=== PATIENT | female | born 1985 ===

== ENCOUNTER 2016-08-19 10:19 | Emergency (ER) | payer MEDICAID ==
[2016-08-19 10:20] VITALS: BMI 29.5
[2016-08-19 10:51] VITALS: O2SAT 98
[2016-08-19 11:05] LABS: RBC URINE 7 /hpf (0-3); URINE BILIRUBIN NEGATIVE (NEGATIVE); URINE BLOOD 2+ (NEGATIVE); URINE COLOR Yellow (YELLOW); URINE GLUCOSE (UA) NORMAL (Normal); URINE KETONE NEGATIVE (NEGATIVE); URINE LEUKOCYTE ESTERASE NEG Leu/uL (Negative); URINE PROTEIN NEGATIVE (NEGATIVE); URINE UROBILINOGEN NORMAL mg/dL (0.2-1.0)
[2016-08-19 11:17] LABS: URINE BACTERIA MANY (<OCC)
[2016-08-19 11:18] LABS: WBC URINE 8 /hpf (0-5)
--- NOTE | 2016-08-19 11:26 | C.PDOC ---
History Of Present Illness 31 y/o female w/o significant PMHx presents to the ED for evaluation of diffuse abdominal pain x2 days associated nausea. Pt admits, pain is intermittent, cramping, worse RUQ. Otherwise, pt denies fever, chills, recent illness or abx use, sore throat, cough, CP, SOB, dyspnea, diaphoresis, palpitation, vomiting, diarrhea, UTI symptoms or any other complaints.Ambulate to Ed for evaluation, not in any apparent distress. Time Seen by Provider: 08/19/16 11:23 Chief Complaint (Nursing): Abdominal Pain History Per: Patient History/Exam Limitations: no limitations Onset/Duration Of Symptoms: Days Current Symptoms Are (Timing): Still Present Severity: Moderate Location Of Pain/Discomfort: Diffuse Radiation Of Pain To:: None Quality Of Discomfort: "Pain" Associated Symptoms: Nausea. denies: Fever, Vomiting, Diarrhea, Chest Pain, Urinary Symptoms Exacerbating Factors: None Alleviating Factors: None Recent travel outside of the [place]: No Past Medical History Reviewed: Historical Data, Nursing Documentation, Vital Signs Vital Signs: Last Vital Signs Temp 98.7 F 08/19/16 12:30 Pulse 89 08/19/16 12:30 Resp 16 08/19/16 12:30 BP 115/77 08/19/16 12:30 Pulse Ox 98 08/19/16 12:30 - Medical History PMH: Asthma Surgical History: Cholecystectomy - [facility] Procedures BILAT TUBAL DIVISION NEC (09/25/14) MONITORING NOS (09/24/14) INJECT/INFUSE ELECTROLYT (12/30/14) INJECT/INFUSE NEC (12/30/14) LOW CERVICAL (09/25/14) Family History: States: Unknown Family Hx - Social History Hx Tobacco Use: No Hx Alcohol Use: No Hx Substance Use: No - Immunization History Hx Tetanus Toxoid Vaccination: No Hx Influenza Vaccination: No Hx Pneumococcal Vaccination: No Review Of Systems Except As Marked, All Systems Reviewed And Found Negative. Constitutional: Negative for: Fever Cardiovascular: Negative for: Chest Pain Respiratory: Negative for: Shortness of Breath Gastrointestinal: Positive for: Nausea, Abdominal Pain. Negative for: Vomiting , Diarrhea Genitourinary: Negative for: Dysuria, Hematuria Physical Exam - Physical Exam Appears: Non-toxic, No Acute Distress Skin: Warm, Dry, No Rash Head: Normacephalic Nose: Normal Throat: No Erythema, No Drooling Neck: Normal ROM, Trachea Midline, Supple Chest: Symmetrical Cardiovascular: Rhythm Regular, No Murmur Respiratory: Normal Breath Sounds, No Rales, No Rhonchi, No Wheezing Gastrointestinal/Abdominal: Bowel Sounds, Soft, Tenderness (mild RUQ and suprapubic tenderness), No Guarding, No Rebound Back: No CVA Tenderness Extremity: No Pedal Edema Extremity: Bilateral: Atraumatic Neurological/Psych: Oriented x3, Normal Speech ED Course And Treatment - Laboratory Results Urine POC: Negative O2 Sat by Pulse Oximetry: 98 (room air) Pulse Ox Interpretation: Normal Progress Note: On re-eavluation, pt is afebrile, hemodynamicaly stable. Non- toxic. Tolerate Po well in ED. Abd: benign, (-) guarding, (-) rebound, (-) localizedtenderness. back: (-) CVA tenderness. UA results review (+) nitrates , preg (-). Pt advised on course of ds. ref. to F/u with PMD in 2-3 days for re-eavl. return if any worsening ro new changes. Disposition Counseled Patient/Family Regarding: Studies Performed, Diagnosis, Need For Followup, Rx Given - Disposition Referrals: [facility] [Outside] Disposition: HOME/ ROUTINE Disposition Time: 11:40 Condition: STABLE Additional Instructions: Encourage fluids Take medication as prescribed Follow up with PMD In 2-3 days for re-evaluation. Return to ED if any worsening or new changes. 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 - Scribe Statement The provider has reviewed the documentation as recorded by the Jbibchristine Caldwell All medical record entries made by the Jbibchristine were at my direction and personally dictated by me. I have reviewed the chart and agree that the record accurately reflects my personal performance of the history, physical exam, medical decision making, and the department course for this patient. I have also personally directed, reviewed, and agree with the discharge instructions and disposition.
[2016-08-19 12:46] VITALS: BP 115/77; PULSE 89; RESP 16; TEMP 98.7
== END 2016-08-19 12:45 | disposition home or self-care (01) ==
LOC: C.ER 10:19
DX: N39.0 Urinary tract infection, site not specified (principal)